=== PATIENT | male | born 2000 | race Caucasian/White ===

== ENCOUNTER 2023-04-22 19:51 | Emergency (ER) | payer OTHER, MEDICAID, SELFPAY ==
--- NOTE | ~2023-04-22 | XR_ITS ---
EXAMINATION: XR CHEST CLINICAL INFORMATION: choked on pizza, epigastric pain COMPARISON: None available. TECHNIQUE: 2 views of the chest were obtained. FINDINGS: No significant abnormality is noted involving the heart, lungs, mediastinum, bony thorax or soft tissues. XR/XR chest 2V IMPRESSION: Unremarkable examination.
[2023-04-22 20:08] VITALS: BP 139/86; PULSE 79; RESP 18; TEMP 36.6; O2SAT 98; BMI 21.7
--- NOTE | 2023-04-22 20:09 | ED_ITS ---
HPI - General Adult General Chief complaint: Skin/Abscess/Foreign Body Stated complaint: Choked on pizza/Checked by Ems/Chest pain/n/v Time Seen by Provider: 04/22/23 21:18 Source: patient and family (Mother) Mode of arrival: ambulatory Limitations: no limitations History of Present Illness HPI narrative: 22-year-old male who presents emergency department for evaluation of food bolus obstruction. The patient states that he was eating cheese pizza and he was having no difficulty swallowing the pizza. He states that he was eating his last piece of pizza when he felt as if a piece of pizza was stuck in his lower throat upper stomach area. He states that he developed intense pain in his chest. He was unable to sips water. He states that any time he drink water he would vomited up. He states he was then dry heaving and eventually vomited up a piece of pizza. He has not had any difficulty swallowing his secretions since vomiting. He states he does have a being in his lower throat upper abdomen area. He states he has had difficulty swallowing solids in the past and did have difficulty 6 months prior and felt like something was stuck in his throat similar to today's presentation. He has had no difficulty swallowing liquids. He states that he does have heartburn symptoms but does not take any medications for his heartburn. He denied weight loss or weight gain. He denied fever, chills, night sweats. Related Data Allergies Allergy/AdvReac Type Severity Reaction Status Date / Time No Known Allergies Allergy Verified 04/22/23 20:13 Review of Systems Review of Systems: Yes all other systems are reviewed and are negative [facility] Past Medical History [facility] Narrative: Past medical history: None. Social History Social History Advance Directives: No Advance Directives Information Provided: No Physical Exam ED Vital Signs: Vital Signs - 24 hr 04/22/23 20:08 Temperature 97.8 F Pulse Rate 79 Respiratory Rate 18 Blood Pressure 139/86 Pulse Oximetry 98 Oxygen Delivery Method Room Air BMI result Body Mass Index 21.7 Vital signs were normal General: Awake, alert, male patient, very pleasant cooperative, does not appear to be in distress, is having no difficulty swallowing his secretions, answers all questions appropriately HEENT: Head is normal cephalic and atraumatic, pupils were equal round reactive light, sclera contact however normal, mouth revealed moist membranes, no erythema or exudates, uvula is midline, no trismus Neck: Supple, no adenopathy, no thyroid mass, no tenderness palpation of his trachea Lungs: Clear to auscultation, breath sounds symmetric bilaterally Abdomen: Soft, nontender, nondistended, normoactive bowel sounds, no hepatomegaly Neuro: Nonfocal Course Course Course Narrative: This is a rapid medical exam: Additional HPI, ROS, PE not included below will be deferred to primary provider. Patient is a 22-year-old male with history of dysphagia presenting to the emergency department after choking on pizza at home prior to arrival. EMS was called but patient had vomited and cleared his airway prior to EMS arrival. States he has continued to vomit clear fluid and dry heave in the car enroute to the ED. Reports mild epigastric/sternal pain since. Feels tightness in his chest. States has never had an endoscopy. Patient is managing his secretions and is in no respiratory distress at this time. Plan: CXR Medical Decision Making Medical Decision Making [facility] Narrative: 22-year-old male who presents emergency department for evaluation of food bolus obstruction after eating cheese pizza. Patient states he has similar problems 6 months prior. The patient did vomit multiple times prior to coming to the emergency department he believes that he has cleared the food bolus from vo miting. Patient has had no difficulty swallowing his secretions while being in the emergency department. The patient does have heartburn like symptoms but does not take any medications for it. He has had no concerning systemic symptoms such as weight loss, fever, night sweats. Patient's examination was unremarkable. The patient was able to drink water without any difficulty here in the emergency department. I told the patient that he most likely has GERD causing esophageal inflammation as the cause of his dysphagia. Patient does have omeprazole at home he was advised to take omeprazole 20 mg once a day for 6 weeks. I did advise him to cut his food into small pieces and to chew his food would thoroughly prior to swallowing. I also told that is very important to cut knee into small pieces prior to swallowing meat. Patient will be referred to our on-call purchasing engineer for further evaluation of his dysphagia. Patient had a two view chest x-ray which I read as no acute disease, no pneumothorax, no pleural effusion. Differential Diagnosis Differential Diagnoses: The differential diagnosis associated with the pre sentation includes Differential diagnosis includes but is not limited to esophagitis secondary to GERD, Bowens's esophagitis, eosinophilic esophagitis, Schatzki's ring, hiatal hernia Independent Interpretation I performed an independent interpretation of an: Plain X-Ray Interpretation: My interpretation the patient's two view chest x-ray is as follows: No pneumothorax, no pleural effusions, no acute disease Radiology Impression Discussion of test interpretation with radiology: I have reviewed the radiologist's reading. Radiologist Impression: XR chest 2V IMPRESSION: Unremarkable examination. Dictated By:Sascha Joshi MD Independent Historian Clinical information obtained from an independent historian. History obtained from or confirmed by: Parent Prescription Management I considered prescription management with: Other (H2 edilma-omeprazole) Discharge Plan Discharge Clinical Impression: Dysphagia, GERD (gastroesophageal reflux disease) Patient Disposition: Home, Self-Care Instructions: Dysphagia (ED) Additional Instructions: You are experiencing difficulty swallowing (dysphagia) The most common cause of dysphagia in someone your age is acid that refluxing on to your esophagus causing the esophagus to be inflamed (gastroesophageal reflux disease). Take your Prilosec (omeprazole) 20 mg 1 pill once a day for 6 weeks. This medication will she off your acid production your stomach and allow your esophagus to heal if your symptoms are caused by GERD. It is important that you follow-up with a purchasing engineer to get an endoscopy since there are other causes of dysphagia in young people(hiatal hernia, Bowens's esophagitis, eosinophilic esophagitis, Schatzki's ring) and sometimes is require different treatments than taking omeprazole. You should take small bites and make sure you chew your food thoroughly before swallowing. It is especially important to cut meat into small pieces before you put it in your mouth since the size of the meat that you swallows does not change by chewing and a large piece of meat is the most common cause of blockage of the esophagus. Call our purchasing engineer on-call tomorrow and see if you can get a follow-up appointment to further evaluate your dysphagia. Follow-up with your doctor in 2 days. Please return to the emergency department if your symptoms get worse or if you develop any symptoms that are concerning to you. Referrals: Joseph Maya [Physician] - 2 weeks (Dysphagia to solid foods, no difficulty swallowing liquids) Interventions: ED Discharge Assessment Last Done: 04/22/23 22:19 Discharge Date/Time: 04/22/23 22:20
--- OUTSIDE RECORDS SUMMARY | 2023-04-22 21:56 | XMS_ITS | Continuity of Care Document ---
Author Name Unknown Organization [facility] Address [address] [place] [address]- Care Team Providers Care Irrigation Engineer Name Role Phone Miguel Amaya MD Primary Care Physician Encounter [facility] Date(s): 12/25/21 - 01/01/22 [facility] Adult [address] [place] [address]- Encounter Diagnosis Physical exam(Discharge Diagnosis) - 12/19/21 Allergic rhinitis(Discharge Diagnosis) - 12/19/21 IT band syndrome(Discharge Diagnosis) - 12/19/21 Needle phobia refer therapist(Discharge Diagnosis) - 12/19/21 Patellofemoral syndrome/ortho(Discharge Diagnosis) - 12/19/21 EKG abnormality normal echo 2020(Discharge Diagnosis) - 12/19/21 Dysphagia refer GI(Discharge Diagnosis) - 12/25/21 Varicocele left(Discharge Diagnosis) - 12/25/21 Plantar warts(Discharge Diagnosis) - 12/25/21 Attending Physician: Miguel Amaya MD Allergies, Adverse Reactions, Alerts No Known Allergies Immunizations Given and Recorded Vaccine Date Status Refusal Reason SARS-CoV-2 (COVID-19) Ad26 vaccine 02/27/21 Given Influenza Virus Vaccine (oldterm) 10/27/19 Recorde d influenza virus vaccine, inactivated 1 10/18/18 Gi jae influenza virus vaccine, inactivated 2 07/29/17 Gi jae influenza virus vaccine, inactivated 3 07/17/16 Gi jae influenza virus vaccine, inactivated 06/20/15 Give n influenza virus vaccine, inactivated 4 09/25/06 Gi jae meningococcal group B vaccine 5 07/29/17 Given Meningococcal Conjugate Vaccine 6 07/17/16 Given Meningococcal Conjugate Vaccine 7 12/29/11 Given Human Papillomavirus Vaccine 06/20/15 Given Human Papillomavirus Vaccine 8 06/14/14 Given Human Papillomavirus Vaccine 03/15/14 Given influenza virus vaccine, live 9 08/19/14 Given influenza virus vaccine, live 10/26/13 Given influenza virus vaccine, live 08/04/12 Given influenza virus vaccine, live 10 09/23/10 Given Hepatitis A Pediatric Vaccine 03/15/14 Given Hepatitis A Pediatric Vaccine 02/07/13 Given Tet/diphth/pertussis, acel (oldterm) 11 12/29/11 G iven influ virus vac, H1N1, live(oldterm) 12 08/18/09 G iven FluMist (oldterm) 13 07/10/09 Given Varicella Virus Vaccine 14 12/05/08 Given Varicella Virus Vaccine 10/08/00 Given Influenza Live (intranasal) (oldterm) 15 08/10/08 Given Influenza Live (intranasal) (oldterm) 08/27/07 Giv en Poliovirus Vaccine, Inactivated 01/08/05 Given Poliovirus Vaccine, Inactivated 04/12/01 Given Poliovirus Vaccine, Inactivated 01/29/00 Given Poliovirus Vaccine, Inactivated 99 Given Diphth/Pertussis,Acel/Tetanus (oldterm) 01/08/05 G iven Diphth/Pertussis,Acel/Tetanus (oldterm) 04/12/01 G iven Diphth/Pertussis,Acel/Tetanus (oldterm) 04/09/00 G iven Diphth/Pertussis,Acel/Tetanus (oldterm) 01/29/00 G iven Diphth/Pertussis,Acel/Tetanus (oldterm) 99 G iven Measles/Mumps/Rubella Virus Vaccine 01/08/04 Given Measles/Mumps/Rubella Virus Vaccine 01/20/01 Given Pneumococcal Vaccine (oldterm) 09/30/01 Given Pneumococcal Vaccine (oldterm) 10/08/00 Given Pneumococcal Vaccine (oldterm) 07/10/00 Given Haemophilus B Conj Vaccine (oldterm) 01/20/01 Give n Haemophilus B Conj Vaccine (oldterm) 04/09/00 Give n Haemophilus B Conj Vaccine (oldterm) 01/29/00 Give n Haemophilus B Conj Vaccine (oldterm) 99 Give n Hepatitis B Vaccine (old term) 07/10/00 Given Hepatitis B Vaccine (old term) 04/09/00 Given Hepatitis B Vaccine (old term) 01/29/00 Given 1Result Comment: [10/18/2018] Monica Cordero M.A. 2Result Comment: [07/29/2017] Yeimi Matt NP 3Result Comment: [07/17/2016] Tono 4Admin Note: private 5Result Comment: [07/29/2017] Yeimi Matt NP 6Result Comment: [07/17/2016] Tono 7Admin Note: VIS 07/25/11 GIVEN 8Result Comment: [06/14/2014] Ordered by Dr. Fournier 9Result Comment: [08/19/2014] Ordered by Abel Thakur MD 10Admin Note: VIS 05/21/10 FLUMIST 11Admin Note: Tdap VIS 04/22/06 given 12Admin Note: screening questions negative 13Admin Note: VIS 05/22/09 given 14Admin Note: VIS 12/23/07 GIVEN 15Admin Note: private vis 05/04/08 private Medications EpiPen 2-Anival 0.3 mg injectable kit = 0.3 mg, Intramuscular, Once, may repeat if necessary, # 1 each, 1 Refills, Soft Stop, 05/17/21 7:29:00 EDT, [facility], Partial fill upon patient request if the prescription is for a schedule II opioid drug., 183.6, cm, 03/26/21 10:53:00 ED... Start Date: 05/17/21 Status: Ordered Knee Support Maintenance, XL LEFT TRUPULL, 08/02/19 11:27:53 EDT, Compound Start Date: 08/02/19 Status: Ordered Problem List Condition Effective Dates Status Health Status Inform ant Allergic rhinitis(Confirmed) Active Patellofemoral syndrome/ortho(Confirmed) 08/01/19 Active Dysphagia refer GI(Confirmed) 12/20/20 Active EKG abnormality normal echo 2020(Confirmed) Active History of cosmetic plastic surgery otoplasty bilateral 016(Confirmed) Active IT band syndrome(Confirmed) 08/01/19 Active Needle phobia refer therapist(Confirmed) 12/20/20 Active Sinus arrhythmia(Confirmed) Active Raynaud phenomenon(Confirmed) Active Varicocele left(Confirmed) Active Plantar warts(Confirmed) 12/20/20 Active Diagnosis Diagnosis Type Effective Dates Health Status Clinical Service Informant Physical exam Discharge Diagnosis 12/19/21 Allergic rhinitis Discharge Diagnosis 12/19/21 IT band syndrome Discharge Diagnosis 12/19/21 Needle phobia refer therapist Discharge Diagnosis 12/19/21 Patellofemoral syndrome/ortho Discharge Diagnosis 12/19/21 EKG abnormality normal echo 2019 Discharge Diagnosis 12/19/21 Dysphagia refer GI Discharge Diagnosis 12/25/21 Varicocele left Discharge Diagnosis 12/25/21 Plantar warts Discharge Diagnosis 12/25/21 Vital Signs Most recent to oldest [Reference Range]: 1 Height 183.6 cm (12/25/21 8:34 AM) Weight 76.9 kg (12/25/21 8:34 AM) Oxygen Saturation [94-100 %] 100 % (12/25/21 8:34 AM) Pulse Rate [55-90 bpm] 69 bpm (12/25/21 8:34 AM) Body Mass Index [18.5-24.99] 22.81 (12/25/21 8:34 AM) Blood Pressure [90-138/55-84 mm Hg] 136/ 80mm Hg (12/25/21 8:34 AM) Respiratory Rate [16-30 br/min] 16 br/mi n (12/25/21 8:34 AM) Temperature [96.8-100.4 DegF] 97.4 DegF (12/25/21 8:34 AM) Mode of Delivery (Oxygen) Room air (12/25/21 8:34 AM) Blood pressure sites Arm, left (12/25/21 8:34 AM) Temperature Route Oral (12/25/21 8:34 AM) Weight Obtained Via Standing scale (12/25/21 8:34 AM) Social History Social History Type Response Tobacco Other: quit 2020. Sex
--- OUTSIDE RECORDS SUMMARY | 2023-04-22 21:56 | XMS_ITS | Continuity of Care Document ---
Author Name Unknown Organization [facility] Address [address] [place] [address]- Care Team Providers Care Economics Instructor Name Role Phone Monique NUNO, Miguel Perez Primary Care Physician Encounter [facility] Date(s): 03/06/22 - 04/05/[address] [address] Attending Physician: AdmMaya quiros Admitting Physician: AdmtrMaya Referring Physician: Admtr, Ar8 Allergies, Adverse Reactions, Alerts No Known Allergies [...] 1 Refills, Soft Stop, 05/17/21 7:29:00 EDT, [facility], Partial fill upon patient [...] GI(Confirmed) 12/20/20 Active EKG abnormality normal echo 2019(Confirmed) Active History of cosmetic plastic surgery otoplasty bilateral 016(Confirmed) Active IT band syndrome(Confirmed) 08/01/19 Active Needle phobia refer therapist(Confirmed) 12/20/20 Active Sinus arrhythmia(Confirmed) Active Raynaud phenomenon(Confirmed) Active Varicocele left(Confirmed) Active Plantar warts(Confirmed) 12/20/20 Active Social History Social History Type Response Tobacco Other: quit 2020. Sex
--- OUTSIDE RECORDS SUMMARY | 2023-04-22 21:56 | XMS_ITS | Continuity of Care Document ---
Author Name Unknown Organization [facility] Address [address] [place] [address]- Care Team Providers Care Director Post Name Role Phone Monique NUNO, Miguel Perez Primary Care Physician Encounter [facility] Date(s): 11/22/19 - 11/29/19 [facility] Adult [address] [place] [address]- [place] Encounter Diagnosis Concussion without loss of consciousness(Discharge Diagnosis) - 11/22/19 Attending Physician: Not on Staff, Attending MD Allergies, Adverse Reactions, Alerts Substance Reaction Severity Status NKA Active Immunizations Given and Recorded Vaccine Date Status Refusal Reason influenza virus vaccine, inactivated 1 10/18/18 Gi jea influenza virus vaccine, inactivated 2 07/29/17 Gi [...] Yeimi Matt NP 3Result Comment: [07/17/2016] Tono 4Acarissa Note: private 5Result Comment: [07/29/2017] Yeimi Matt [...] 15Admin Note: private vis 05/04/08 private Medications Astelin 137 mcg/inh nasal spray 2 sprays, Nares, Both, 2 times a day, # 1 each, 0 Refills, Maintenance, 02/12/16 10:53:58, 2 spraysNares, Both 2 times a day,x30 days Start Date: 02/12/16 Stop Date: 03/13/16 Status: Ordered baclofen/flurbiprofen/lidocaine topical 1 applicator, Topically, 3 times a day, 0 Refills, Maintenance, 08/02/19 11:27:50 EDT Start Date: 08/02/19 Status: Ordered diclofenac sodium 75 mg oral delayed release tablet 1 tablet = 75 mg, By Mouth, 2 times a day, with food, # 60 tablet, 2 Refills, Maintenance, 08/02/1911:27:33 EDT, EC Tablet Start Date: 08/02/19 Status: Ordered Flonase 50 mcg/inh nasal spray 2 sprays, Nares, Both, Daily, for 30 days, # 1 each, 5 Refills, Acute 08/10/16 8:52:44, 02/12/16 8:52:44, 2 sprays Nares, Both Daily,x30 days Start Date: 02/12/16 Stop Date: 08/10/16 Status: Ordered Knee Support Maintenance, XL LEFT TRUPULL, 08/02/19 11:27:53 EDT, Compound Start Date: 08/02/19 Status: Ordered ProAir RespiClick 90 mcg/inh inhalation powder 2 puffs, Inhalation, Every 4 hours, PRN as needed, # 1 each, 1 Refills, Maintenance, 06/10/18 16:54:12 EDT, Powder, 2 puffs Inhalation Every 4 hours,PRN:as needed Start Date: 06/10/18 Status: Ordered Zyrtec 10 mg oral tablet 1 tablet = 10 mg, By Mouth, Daily, # 30 tablet, 0 Refills, Maintenance, Tablet Start Date: 04/01/13 Status: Ordered Problem List Condition Effective Dates Status Health Status Inform ant Allergic rhinitis(Confirmed) Active Patellofemoral syndrome/ortho(Confirmed) 08/01/19 Active History of cosmetic plastic surgery otoplasty bilateral 016(Confirmed) Active IT band syndrome(Confirmed) 08/01/19 Active Varicocele left(Confirmed) Active Diagnosis Diagnosis Type Effective Dates Health Status Clinical Service Informant Concussion without loss of consciousness Discharge Diagnosis 11/22/19 Vital Signs Most recent to oldest [Reference Range]: 1 Height 183.6 cm (11/22/19 8:45 AM) Weight 78.3 kg (11/22/19 8:45 AM) Oxygen Saturation [94-100 %] 98 % (11/22/19 8:45 AM) Pulse Rate [55-90 bpm] 88 bpm (11/22/19 8:45 AM) Body Mass Index [18.5-24.99] 23.23 (11/22/19 8:45 AM) Blood Pressure [90-138/55-84 mm Hg] 128/ 78mm Hg (11/22/19 8:45 AM) Mode of Delivery (Oxygen) Room air (11/22/19 8:45 AM) Blood pressure sites Arm, right (11/22/19 8:45 AM) Weight Obtained Via Standing scale (11/22/19 8:45 AM) Social History Social History Type Response Smoking Status Never (less than 100 in lifetime) entered on: 12/01/18 Sex
--- OUTSIDE RECORDS SUMMARY | 2023-04-22 21:56 | XMS_ITS | Continuity of Care Document ---
Author Name Unknown Organization [facility] Address [address] [place] [address]- Care Team Providers Care Hand Clerical Verifier Name Role Phone Billy Villatla DO Primary Care Physician Encounter [facility] Date(s): 01/15/23 - 04/03/23 [facility] Adult [address] [place] [address]- Attending Physician: Monique NUNO, Miguel Perez Allergies, Adverse Reactions, Alerts No Known Allergies [...] 1 Refills, Soft Stop, 05/17/21 7:29:00 EDT, [facility] # [facility], Partial fill upon patient request if the prescription is for a schedule II opioid drug., 183.6, cm, 03/26/21 10:53:00 ED... Start Date: 05/17/21 Status: Ordered Knee Support Maintenance, XL LEFT TRUPULL, 08/02/19 11:27:53 EDT, Compound Start Date: 08/02/19 Status: Ordered Problem List Condition Confirmation Course Effective Dates Status H ealth Status Informant Allergic rhinitis Confirmed Active Patellofemoral syndrome/ortho Confirmed 08/01/19 Active Dysphagia refer GI Confirmed 12/20/20 Active EKG abnormality normal echo 2019 Confirmed Active History of cosmetic plastic surgery otoplasty bilateral 016 Confirmed Active IT band syndrome Confirmed 08/01/19 Active Needle phobia refer therapist Confirmed 12/20/20 Active Sinus arrhythmia Confirmed Active Raynaud phenomenon Confirmed Active Varicocele left Confirmed Active Plantar warts Confirmed 12/20/20 Active Social History Social History Type Response Tobacco Other: quit 2020. Sex Patient Care team information Care Team Personnel Name: Abel Thakur MD Position: [facility] Physician - Pediatrics Member Role: Lifetime Consulting Physician Address: Address: [address] [place] [address] [facility] [address] Name: Adilia Fournier NP Position: [facility] PCO Associate Professional Member Role: Lifetime Consulting Provider Address: Address: [address] [place] [address] [facility] [place], [place] [id number] Name: Billy Villalta DO Position: [facility] Physician - Primary Care Member Role: PCP Address: Address: [address] [place] [address] [place] Care Team Related Persons Name: SAYRACHELSEY Address: home [address] [place] [address] Name: DOMINICK COLBERT Address: home [address] [place] [address] Name: DOMINICK COLBERT Address: home [address] [place] [address]
--- OUTSIDE RECORDS SUMMARY | 2023-04-22 21:56 | XMS_ITS | Continuity of Care Document ---
Author Name Unknown Organization [facility] Address [address] [place] [address]- Care Team Providers Care Attenuator Name Role Phone Monique NUNO, Miguel Perez Primary Care Physician Encounter [facility] Date(s): 03/26/21 - 04/25/21 [facility] Adult [address] [place] [address]- Attending Physician: Admchula, Flo8 Admitting Physician: AdmtrMaya Referring Physician: Admtr, Ar8 Allergies, Adverse Reactions, Alerts Substance Reaction Severity [...] 01/29/00 Given 1Result Comment: [10/18/2018] Monica Cordero MRavindra 2Result Comment: [07/29/2017] Yeimi Matt NP 3Result Comment: [07/17/2016] Tono 4Admwill Note: private 5Result Comment: [07/29/2017] Yeimi Matt [...] 15Admin Note: private vis 05/04/08 private Medications Knee Support Maintenance, XL LEFT TRUPSALAZAR, 08/02/19 11:27:53 EDT, Compound Start Date: 08/02/19 Status: Ordered Problem List Condition Effective Dates Status Health Status Inform ant Allergic rhinitis(Confirmed) Active Patellofemoral syndrome/ortho(Confirmed) 08/01/19 Active Dysphagia refer GI(Confirmed) 12/20/20 Active EKG abnormality normal echo 2020(Confirmed) Active History of cosmetic plastic surgery otoplasty bilateral 016(Confirmed) Active IT band syndrome(Confirmed) 08/01/19 Active Needle phobia refer therapist(Confirmed) 12/20/20 Active Sinus arrhythmia(Confirmed) Active Varicocele left(Confirmed) Active Plantar warts(Confirmed) 12/20/20 Active Social History Social History Type Response Tobacco Use: 4 or less cigar ettes(less than 1/4 pack)/day in last 30 days. Sex
--- OUTSIDE RECORDS SUMMARY | 2023-04-22 21:56 | XMS_ITS | Continuity of Care Document ---
Author Name Unknown Organization [facility] ter Address [address] [place] [address]- Care Team Providers Care Shoe Ironer Name Role Phone Monique NUNO, Miguel Perez Primary Care Physician [phone] Encounter [facility] Date(s): 11/11/19 - 11/11/[address] [address]- [facility] Encounter Diagnosis Concussion(Final) - 11/11/19 Discharge Disposition: A-D/C Home Attending Physician: Evelnie Felix MD Admitting Physician: Eveline Felix MD Referring Physician: Not on Staff, Referring MD Allergies, Adverse Reactions, Alerts Substance Reaction [...] band syndrome(Confirmed) 08/01/19 Active Varicocele left(Confirmed) Active Vital Signs Most recent to oldest [Reference Range]: 1 2 Weight 77.3 kg (11/11/19 1:04 PM) Oxygen Saturation [94-100 %] 99 % (11/11/19 1:04 PM) 100 % (11/11/19 12:40 PM) Pulse Rate [55-90 bpm] 78 bpm (11/11/19 1:04 PM) 89 bpm (11/11/19 12:40 PM) Blood Pressure [90-138/55-84 mm Hg] 150/ 79mm Hg *H* (11/11/19 1:04 PM) Respiratory Rate [16-30 br/min] 20 br/mi n (11/11/19 1:04 PM) Temperature [96.8-100.4 DegF] 98.5 DegF (11/11/19 1:04 PM) Mode of Delivery (Oxygen) Room air (11/11/19 1:04 PM) Room air (11/11/19 12:40 PM) Blood pressure sites Arm, left (11/11/19 1:04 PM) Temperature Route Oral (11/11/19 1:04 PM) Dry Weight 77.3 kg (11/11/19 1:04 PM) Weight Obtained Via Patient/family state d (11/11/19 1:04 PM) Dry Weight Obtained Via Patient/family s tated (11/11/19 1:04 PM) Social History Social History Type Response Smoking Status Never (less than 100 in lifetime) entered on: 12/01/18 Sex
--- OUTSIDE RECORDS SUMMARY | 2023-04-22 21:56 | XMS_ITS | Continuity of Care Document ---
Author Name Unknown Organization [facility] lt Address [address] [place] [address]- Care Team Providers Care Motion Graphics Artist Name Role Phone Miguel Amaya MD Primary Care Physician Encounter [facility] Date(s): 12/20/20 - 12/27/20 [facility] Adult [address] [place] [address]- Encounter Diagnosis Physical exam(Discharge Diagnosis) - 12/18/20 EKG abnormality normal echo 2020(Discharge Diagnosis) - 12/18/20 Varicocele left(Discharge Diagnosis) - 12/20/20 Allergic rhinitis(Discharge Diagnosis) - 12/20/20 Needle phobia refer therapist(Discharge Diagnosis) - 12/20/20 Dysphagia refer GI(Discharge Diagnosis) - 12/20/20 Plantar warts(Discharge Diagnosis) - 12/20/20 Attending Physician: Miguel Amaya MD Allergies, Adverse Reactions, Alerts Substance Reaction Severity Status NKA Active Immunizations Given and Recorded Vaccine Date Status Refusal Reason Influenza Virus Vaccine (oldterm) 10/27/19 Recorde d [...] Vaccine 8 06/14/14 Given Human Papillomavirus Vaccine 6/4/14 Given influenza virus vaccine, live 9 08/19/14 [...] private Medications Knee Support Maintenance, XL LEFT [facility], 08/02/19 11:27:53 EDT, Compound Start Date: 08/02/19 [...] Clinical Service Informant Physical exam Discharge Diagnosis 12/18/20 EKG abnormality normal echo 2019 Discharge Diagnosis 12/18/20 Varicocele left Discharge Diagnosis 12/20/20 Allergic rhinitis Discharge Diagnosis 12/20/20 Needle phobia refer therapist Discharge Diagnosis 12/20/20 Dysphagia refer GI Discharge Diagnosis 12/20/20 Plantar warts Discharge Diagnosis 12/20/20 Vital Signs Most recent to oldest [Reference Range]: 1 2 Height 183.6 cm (12/20/20 9:00 AM) 183.6 cm (12/20/20 8:56 AM) Weight 74.7 kg (12/20/20 8:56 AM) Oxygen Saturation [94-100 %] 98 % (12/20/20 8:56 AM) Pulse Rate [55-90 bpm] 64 bpm (12/20/20 8:56 AM) Body Mass Index [18.5-24.99] 22.16 (12/20/20 8:56 AM) Blood Pressure [90-138/55-84 mm Hg] 112/ 80mm Hg (12/20/20 9:00 AM) 150/80mm Hg *H* (12/20/20 8:56 AM) Respiratory Rate [16-30 br/min] 16 br/mi n (12/20/20 8:56 AM) Blood pressure sites Arm, left (12/20/20 9:00 AM) Arm, left (12/20/20 8:56 AM) Social History Social History Type Response Smoking Status Never (less than 100 in lifetime) entered on: 12/01/18 Sex
--- OUTSIDE RECORDS SUMMARY | 2023-04-22 21:56 | XMS_ITS | Continuity of Care Document ---
Author Name Unknown Organization [facility] Address [address] [place] [address]- Care Team Providers Care Monotype Machinist Name Role Phone Monique NUNO, Miguel Perez Primary Care Physician [facility]counter [facility] Date(s): 11/22/19 - 12/02/19 [facility] Adult [address] [place] [address]- [facility] Attending Physician: Admtr, Flo8 Admitting Physician: Admtr, Ar8 Referring Physician: Admtr, Ar8 Allergies, Adverse Reactions, [...] band syndrome(Confirmed) 08/01/19 Active Varicocele left(Confirmed) Active Social History Social History Type Response Smoking Status Never (less than 100 in lifetime) entered on: 12/01/18 Sex
--- OUTSIDE RECORDS SUMMARY | 2023-04-22 21:56 | XMS_ITS | Continuity of Care Document ---
Author Name Unknown Organization [facility] lt Address [address] [place] [address]- Care Team Providers Care Ip Attorney Name Role Phone Billy Villalta DO Primary Care Physician Encounter [facility] Date(s): 03/04/23 - 04/03/23 [facility] Adult [address] [place] [address]- Attending Physician: Maya Ball Admitting Physician: AdmMaya quiros Referring Physician: AdmtrMaya Allergies, Adverse Reactions, Alerts No Known Allergies [...] 1 Refills, Soft Stop, 05/17/21 7:29:00 EDT, [email or web address] # [facility], Partial fill upon patient [...] Type Response Tobacco Other: quit 2020. Sex EKG study * Event Display: EKG Authored Date: Patient Care team information Care Team Personnel Name: Abel Thakur MD Position: [facility] Physician - Pediatrics Member Role: Lifetime Consulting Physician Address: Address: [address] [place] [address] [address] Name: Irlanda COE, Adilia Robins Position: [facility] PCO Associate Professional Member Role: Lifetime Consulting Provider Address: Address: [address] [place] [address] [facility] [place] [address]- [place] Name: Billy Villalta DO Position: [facility] Physician - Primary Care Member Role: PCP Address: Address: [address] [place] [address]- Care Team Related Persons Name: CHELSEY COLBERT Address: home [address] [place] [address] Name: DOMINICK COLBERT Address: home [address] [place] [address] Name: DOMINICK COLBERT Address: home [address] [place] [address]
--- OUTSIDE RECORDS SUMMARY | 2023-04-22 21:56 | XMS_ITS | Continuity of Care Document ---
Author Name Unknown Organization [facility] Rein[facility] lt Address [address] [place] [address]- Care Team Providers Care Indoor Landscape Architect Name Role Phone Billy Villalta DO Primary Care Physician Encounter [facility] Date(s): 01/20/23 - 02/19/23 [facility] Adult [address] [place] [address]- Attending Physician: Maya Ball Admitting Physician: AdmMaya [...] 1 Refills, Soft Stop, 05/17/21 7:29:00 EDT, [facility] # [facility], Partial fill upon patient [...] Team Personnel Name: Abel Thakur MD Position: [facility] General Pediatrics MD Member Role: Lifetime Consulting Physician Address: Address: [address] [place] [address] [address] Name: Irlanda COE, Adilia Robins Position: [facility] PCO Associate Professional Member Role: Lifetime Consulting Provider Address: Address: [address] [place] [address] [facility] [place] [address]- [place] Name: Billy Villalta DO Position: [facility] Primary Care Physician Member Role: PCP Address: Address: [address] [place] [address]- Care Team Related Persons Name: CHELSEY COLBERT Address: home [address] [place] [address] Name: DOMINICK COLBERT Address: home [address] [place] [address] Name: DOMINICK COLBERT Address: home [address] [place] [address]
--- OUTSIDE RECORDS SUMMARY | 2023-04-22 21:56 | XMS_ITS | Continuity of Care Document ---
Author Name Unknown Organization [facility] lt Address [address] [place] [address]- Care Team Providers Care Pc Support Specialist Name Role Phone Monique NUNO, Miguel Perez Primary Care Physician Encounter [facility] Date(s): 03/26/21 - 04/02/21 [facility] Adult [address] [place] [address]- Encounter Diagnosis Sinus congestion(Discharge Diagnosis) - 03/26/21 Upper respiratory infection(Discharge Diagnosis) - 03/26/21 Attending Physician: Katrin Duarte NP Referring Physician: Miguel Amaya MD Allergies, Adverse Reactions, [...] 08/04/12 Given influenza virus vaccine, live 10 12/13/10 Given Hepatitis A Pediatric Vaccine 03/15/14 Given [...] private Medications Knee Support Maintenance, XL LEFT ANNAMARIAUPSALAZAR, 08/02/19 11:27:53 EDT, Compound Start Date: 08/02/19 [...] Effective Dates Health Status Clinical Service Informant Sinus congestion Discharge Diagnosis 03/26/21 Upper respiratory infection Discharge Diagnosis 03/26/21 Vital Signs Most recent to oldest [Reference Range]: 1 Height 183.6 cm (03/26/21 10:53 AM) Social History Social History Type Response Tobacco Use: 4 or less cigar ettes(less than 1/4 pack)/day in last 30 days. Sex
--- OUTSIDE RECORDS SUMMARY | 2023-04-22 21:56 | XMS_ITS | Continuity of Care Document ---
Author Name Unknown Organization [facility] Address [address] [place] [address]- Care Team Providers Care Chemistry Lab Instructor Name Role Phone Monique NUNO, Miguel Perez Primary Care Physician [phone] Encounter [facility] Date(s): 04/02/21 - 05/02/[address] [address] Attending Physician: Admtr, Maya Admitting Physician: AdmtrMaya Referring Physician: Admtr, Ar8 [...] private Medications Knee Support Maintenance, XL LEFT ISIDRO, 08/02/19 11:27:53 EDT, Compound Start Date: 08/02/19 [...]
--- OUTSIDE RECORDS SUMMARY | 2023-04-22 21:56 | XMS_ITS | Continuity of Care Document ---
Author Name Unknown Organization [facility] lt Address [address] [place] [address]- Care Team Providers Care Biztalk Architect Name Role Phone Monique NUNO, Miguel Perez Primary Care Physician [phone] Encounter [facility] Date(s): 02/07/20 - 03/08/20 [facility] Adult [address] [place] [address]- [facility] Attending Physician: Admchula, Flo8 Admitting Physician: Admtr, Ar8 Referring Physician: [...] 4Admin Note: private 5Result Comment: [07/29/2017] Yeimi [place], INTERNAL SPECIALIST 6Result Comment: [07/17/2016] Tono 7Admin Note: VIS [...] Date: 02/12/16 Stop Date: 03/13/16 Status: Ordered diclofenac sodium 75 mg oral [...] Allergic rhinitis(Confirmed) Active 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
--- OUTSIDE RECORDS SUMMARY | 2023-04-22 21:56 | XMS_ITS | Continuity of Care Document ---
Author Name Unknown Organization [facility] lt Address [address] [place] [address]- Care Team Providers Care Loft Rigger Name Role Phone Miguel Amaya MD Primary Care Physician Encounter [facility] Date(s): 02/07/20 - 02/14/20 [facility] Adult [address] [place] [address]- [place] Encounter Diagnosis EKG abnormality(Discharge Diagnosis) - 02/07/20 Attending Physician: Miguel Amaya MD Allergies, Adverse [...] Active Sinus arrhythmia(Confirmed) Active Varicocele left(Confirmed) Active Diagnosis Diagnosis Type Effective Dates Health Status Cl inical Service Informant EKG abnormality Discharge Diagnosis 02/07/20 Procedures Procedure Date Related Diagnosis Body Site Status Echocardiogram 1 12/30/19 Complete d [id number] Ventricular Rate: 80 BPM Atrial Rate: 80 BPM P-R Interval: 132 ms QRS Duration: 92 ms Q-T Interval: 356 ms QTC Calculation(Bezet): 410 ms P [place]: 67 degrees R [place]: 74 degrees T [place]: 60 degrees Sinus rhythm with marked sinus arrhythmia Possible Left atrial enlargement Poor R wave progression in V1-V2 may be normal variant or due to septal infarct or misplaced leads Borderline ECG No previous ECGs available Confirmed by LOUIS NUNO, ESTEVAN Ha ([id number]) on 12/15/2019 7:56:59 AM Social History Social History Type Response Smoking Status Never (less than 100 in lifetime) entered on: 12/01/18 Sex
--- OUTSIDE RECORDS SUMMARY | 2023-04-22 21:57 | XMS_ITS | Continuity of Care Document ---
Author Name Unknown Organization [facility] Address [address] [place] [address]- Care Team Providers Care Egg Producer Name Role Phone Monique NNUO, iMguel Perez Primary Care Physician [facility]counter [facility] Date(s): 02/19/21 - 05/02/[address] [address] Attending Physician: Mila Magana NP Admitting Physician: Mila Magana NP Referring Physician: Mila Magana NP Allergies, Adverse Reactions, Alerts Substance Reaction Severity [...] 4Admin Note: private 5Result Comment: [07/29/2017] Yeimi Shaka, HULL OUTFIT SUPERVISOR 6Result Comment: [07/17/2016] Tono 7Admin Note: VIS [...]
--- OUTSIDE RECORDS SUMMARY | 2023-04-22 21:57 | XMS_ITS | Continuity of Care Document ---
Author Name Unknown Organization [facility] Rein[facility] lt Address [address] [place] [address]- Care Team Providers Care Lead Cytogenetic Technologist Name Role Phone Monique NUNO, Miguel Perez Primary Care Physician [phone] Encounter [facility] Date(s): 03/06/22 - 04/05/22 [facility] Adult [address] [place] [address]- Allergies, Adverse Reactions, Alerts No Known Allergies [...] Yeimi Matt NP 6Result Comment: [07/17/2016] Tono 7Acarissa Note: VIS 10/14/11 GIVEN 8Result Comment: [06/14/2014] Ordered by Dr. [...] 1 Refills, Soft Stop, 05/17/21 7:29:00 EDT, [facility] # [facility], Partial fill upon patient [...]
--- OUTSIDE RECORDS SUMMARY | 2023-04-22 21:57 | XMS_ITS | Continuity of Care Document ---
Author Name Unknown Organization [facility] lt Address [address] [place] [address]- Care Team Providers Care Bird Trapper Name Role Phone Monique NUNO, Miguel Perez Primary Care Physician [phone] Encounter [facility] Date(s): 12/22/20 - 01/21/21 [facility] Adult [address] [place] [address]- Allergies, Adverse Reactions, Alerts Substance Reaction Severity [...]
--- OUTSIDE RECORDS SUMMARY | 2023-04-22 21:57 | XMS_ITS | Continuity of Care Document ---
Author Name Unknown Organization [facility] lt Address [address] [place] [address]- Care Team Providers Care Clerical Manager Name Role Phone Miguel Amaya MD Primary Care Physician Encounter [facility] Date(s): 12/14/19 - 12/21/19 [facility] Adult [address] [place] [address]- [place] Encounter Diagnosis Physical exam(Discharge Diagnosis) - 12/11/19 Varicocele left(Discharge Diagnosis) - 12/11/19 Asthma(Discharge Diagnosis) - 12/14/19 Sinus arrhythmia(Discharge Diagnosis) - 12/14/19 Attending Physician: Miguel Amaya MD Allergies, Adverse [...] 4Admin Note: private 5Result Comment: [07/29/2017] Yeimi Matt, SARAVANAN 6Result Comment: [07/17/2016] Tono 7Admin Note: VIS [...] Clinical Service Informant Physical exam Discharge Diagnosis 12/11/19 Varicocele left Discharge Diagnosis 12/11/19 Asthma Discharge Diagnosis 12/14/19 Sinus arrhythmia Discharge Diagnosis 12/14/19 Vital Signs Most recent to oldest [Reference Range]: 1 Height 183.6 cm (12/14/19 3:38 PM) Weight 76.8 kg (12/14/19 3:38 PM) Oxygen Saturation [94-100 %] 99 % (12/14/19 3:38 PM) Pulse Rate [55-90 bpm] 94 bpm *H* (12/14/19 3:38 PM) Body Mass Index [18.5-24.99] 22.78 (12/14/19 3:38 PM) Blood Pressure [90-138/55-84 mm Hg] 130/ 78mm Hg (12/14/19 3:38 PM) Respiratory Rate [16-30 br/min] 16 br/mi n (12/14/19 3:38 PM) Temperature [96.8-100.4 DegF] 98.6 DegF (12/14/19 3:38 PM) Mode of Delivery (Oxygen) Room air (12/14/19 3:38 PM) Blood pressure sites Arm, left (12/14/19 3:38 PM) Temperature Route Oral (12/14/19 3:38 PM) Social History Social History Type Response Smoking Status Never (less than 100 in lifetime) entered on: 12/01/18 Sex
--- OUTSIDE RECORDS SUMMARY | 2023-04-22 21:57 | XMS_ITS | Continuity of Care Document ---
Author Name Unknown Organization [facility] Rein[facility] lt Address [address] [place] [address]- Care Team Providers Care Genetic Coordinator Name Role Phone Monique NUNO, Miguel Perez Primary Care Physician [facility]counter [facility] Date(s): 05/17/21 - 06/16/21 [facility] Adult [address] [place] [address]- Allergies, Adverse Reactions, Alerts Substance Reaction Severity [...] 6Result Comment: [07/17/2016] Tono 7Acarissa Note: VIS 07/25/11 GIVEN 8Result Comment: [06/14/2014] [...] 1 Refills, Soft Stop, 05/17/21 7:29:00 EDT, [facility] # [facility], Partial fill upon patient [...]
--- OUTSIDE RECORDS SUMMARY | 2023-04-22 21:57 | XMS_ITS | Continuity of Care Document ---
Author Name Unknown Organization [facility] Address [address] [place] [address]- Care Team Providers Care Granite Block Paver Name Role Phone Monique NUNO, Miguel Perez Primary Care Physician Un available Encounter [facility] Date(s): 11/28/22 - 12/28/[address] [address]- Attending Physician: AdmMaya quiros Admitting Physician: AdmtrMaya [...] 1 Refills, Soft Stop, 05/17/21 7:29:00 EDT, [facility] # [facility], Partial fill upon patient [...] Team Personnel Name: Abel Thakur MD Position: [facility] General Pediatrics MD Member Role: Lifetime Consulting Physician Address: Address: [address] [place] [address] Pediatric Services [address] Name: Adilia Fournier NP Position: [facility] PCO Associate Professional Member Role: Lifetime Consulting Provider Address: Address: [address] [place] [address] Ped[address] Care Team Related Persons Name: CHELSEY COLBERT Address: home [address] [place] [address] Name: DOMINICK COLBERT Address: home [address] [place] [address] Name: DOMINICK COLBERT Address: home [address] [place] [address]
== END 2023-04-22 22:20 | disposition home or self-care (01) ==
PROVIDERS: Emergency Provider Emergency Medicine Emergency Medical Services
DX: R13.10 Dysphagia, unspecified (principal); K21.9 Gastro-esophageal reflux disease without esophagitis
CPT/HCPCS: 71046; 99283